=== PATIENT | female | born 1950 | race Two or more races ===

== ENCOUNTER 2022-01-19 06:00 | Day surgery (SDC) | payer OTHER ==
[~2022-01-19] VITALS: Ht 149.9 cm; Wt 56.2 kg
[~2022-01-19 06:00] MED LIST: LIPITOR40 M1 PO; NORVASC5 MG PO
[2022-01-19] MEDS ORDERED: CEPHALEXIN500 M1 PO (09:05)
[2022-01-19] MEDS ORDERED: CILOXAN5 ML OTIC (09:05)
== END 2022-01-19 11:45 | disposition home or self-care (01) ==
LOC: CIR.AMB 06:00
PROVIDERS: ATTEND Otolaryngology Otology & Neurotology
DX: H80.92 Unspecified otosclerosis, left ear (principal); H90.A12 Conductive hearing loss, unilateral, left ear with restricted hearing on the contralateral side; Z20.822 Contact with and (suspected) exposure to COVID-19; I10 Essential (primary) hypertension